=== PATIENT | female | born 1935 | race Caucasian/White ===

== ENCOUNTER 2023-09-04 14:28 | Outpatient (AMB) | payer MEDICARE, MEDICAID, SELFPAY ==
[2023-09-04 14:33] VITALS: BP 136/70; PULSE 58; O2SAT 96
--- NOTE | 2023-09-04 14:33 | A.OFFVIS_ITS ---
Vital Signs 09/04/23 14:33 BP 136/70 Pulse 58 Pulse Oximetry (%) 96 Intake Visit Reasons: F/U,Right knee abcess on po doxy Information Interpreted: clinical only [employer]: [employer] Present Allergies morphine Allergy (Unknown, Unverified 09/04/23 14:36) vomiting HPI HPI F/U,Right knee abcess on po doxy: Details: She feels well [facility] Medical History Dementia Periprosthetic fracture of shaft of femur Surgical History History of tonsillectomy Hx of cholecystectomy History of cataract removal with insertion of prosthetic lens Family History Father CAD (coronary artery disease) Hyperlipidemia Mother No problems noted. Daughter No problems noted. Review of Systems Const All systems reviewed & are unremarkable except as noted in HPI and below Physical Exam Vital Signs: Last Vital Signs Pulse 58 09/04/23 14:33 BP 136/70 09/04/23 14:33 Pulse Ox 96 09/04/23 14:33 Const General: cooperative Orientation/consciousness: patient oriented x3 HEENT Head: Yes normal to inspection Mouth: Normal oral and palatal mucosa present Eyes General: appearance normal, both eyes and all related structures Pupils: Equal, round and reactive pupils present Resp Effort & Inspection: normal respiratory effort Cardio Rate: regular rate Rhythm: regular rhythm GI Palpation (GI): Soft to palpation and nontender General: Yes no CVA tenderness Back/Spine/Pelvis Back: no CVA tenderness Skin General skin exam: no rashes or lesions noted Neuro General: patient oriented x3 Cranial nerves: Yes CN's II-XII intact bilaterally and Yes Equal, round and reactive pupils present Extrem General: Yes normal to inspection Psych Appearance: grossly normal Assessment & Plan Assessment & Plan (1) Periprosthetic fracture of shaft of femur: Comment: Area has sealed up with no erythema or drainage Code(s): M97.8XXA - Periprosthetic fracture around other internal prosthetic joint, initial encounter; Z96.649 - Presence of unspecified artificial hip joint Category: Medical Plan: Patient knee looks well. Daughter may want to stop prophylactic antibiotics. She will decide and let us know. Make appt if needed. Coding Level of Care Code Est Pt Level 3 (54420) Diagnoses Periprosthetic fracture of shaft of femur M97.8XXA; Z96.649
== END 2023-09-04 15:39 | disposition home or self-care (01) ==
LOC: HO.HID 14:28
PROVIDERS: Visit Provider Internal Medicine
DX: M97.8XXA Periprosthetic fracture around other internal prosthetic joint, initial encounter (principal); Z96.649 Presence of unspecified artificial hip joint
CPT/HCPCS: 99213

== ENCOUNTER → 2023-09-04 14:28 | Outpatient (BNVA) | payer MEDICARE, MEDICAID, SELFPAY | PROVIDERS: Visit Provider Internal Medicine | DX: M97.8XXD Periprosthetic fracture around other internal prosthetic joint, subsequent encounter (principal); Z96.649 Presence of unspecified artificial hip joint | CPT/HCPCS: 99212 ==